=== PATIENT | female | born 1960 | race Caucasian/White ===

== ENCOUNTER 2016-10-19 08:25 | Day surgery (SDC) | payer OTHER ==
[2016-10-17 14:00] VITALS: BMI 19.0
--- NOTE | 2016-10-19 07:21 | HP ---
History & Physical Update - History History: No Change - Physical Physical: No Change - Assessment Assessment: No Change - Plan Plan: No Change (Cervical radiculopathy C5/6. Initial h&p is in pt's paper chart.)
[~2016-10-19 08:25] MED LIST: CEFAZOLIN 1 GM in DEXTROSE 5%-WATER - 100 ML IVPB ONE; GABAPENTIN 300 MG CAPSULE (FP) PO ONE; oxyCODONE HCL 10 MG SUSTAINED ACTING TABLET PO ONE
[2016-10-19] MEDS ORDERED: oxyCODONE HCL 10 MG SUSTAINED ACTING TABLET ONE (09:43)
[2016-10-19] MEDS ORDERED: GABAPENTIN 300 MG CAPSULE (FP) ONE (09:43)
[2016-10-19] MEDS ORDERED: ROCURONIUM BROMIDE 50 MG/5 ML VIAL ONE (10:00)
[2016-10-19] MEDS ORDERED: LIDOCAINE HCL/PF 2% SDV 5ML VIAL ONE (10:00)
[2016-10-19] MEDS ORDERED: PROPOFOL 20 ML ONE ×4 (10:00→10:59)
[2016-10-19] MEDS ORDERED: BUPIVACAINE HCL/PF 2.5 MG/ML - 30 ML VIAL IJ ONE (10:30)
[2016-10-19] MEDS ORDERED: LIDOCAINE 1%/EPI 1:100000 (20 ML MULTI DOSE VIAL) ONE (10:30)
[2016-10-19] MEDS ORDERED: MIDAZOLAM HCL 2 MG/2 ML SINGLE DOSE VIAL ONE (10:37)
[2016-10-19] MEDS ORDERED: ONDANSETRON 4 MG/2 ML VIAL IVPUSH PRN (11:27)
[2016-10-19] MEDS ORDERED: HYDROmorphone HCL CARPU-JECT 1 MG/1 ML DISP.SYRIN IVPUSH PRN (11:27)
[2016-10-19] MEDS ORDERED: oxyCODONE HCL 5 MG TABLET PO PRN ×3 (11:27→13:47)
[2016-10-19] MEDS ORDERED: LACTATED RINGERS SOLUTION 1,000 ML IV SCH ×2 (11:30→14:00)
[2016-10-19] MEDS ORDERED: ePHEDrine SULFATE 50 MG/1 ML AMPULE ONE (11:45)
[2016-10-19] MEDS ORDERED: GLYCOPYRROLATE 0.2 MG/1 ML VIAL ONE (13:19)
[2016-10-19] MEDS ORDERED: NEOSTIGMINE METHYLSULFATE 0.5 MG/ML - 10 ML MDV ONE (13:19)
--- NOTE | 2016-10-19 13:45 | OP ---
Operative Note - Note: Operative Date: 10/19/16 Pre-Operative Diagnosis: Cervical stenosis C5/6 Operation: ACDF C5/6 Post-Operative Diagnosis: Same as Pre-op Surgeon: Brayden Zhou Bottle Capping Machine Operator: Amador Nunes Anesthesiologist/RACEBOOK WRITER: Yaneth Sykes Anesthesia: General Estimated Blood Loss (mls): 5 Fluid Volume Replaced (mls): 1,500 Operative Report Dictated: Yes
[2016-10-19] MEDS ORDERED: ACETAMINOPHEN INJECTION 100 ML IVPB ONE (13:46)
[2016-10-19] MEDS ORDERED: diazePAM CARPU-JECT 10 MG/2 ML DISP.SYRIN ONE (13:46)
[2016-10-19] MEDS ORDERED: traMADol HCL 50 MG TABLET ONE (13:46)
[2016-10-19] MEDS ORDERED: KETOROLAC TROMETHAMINE 30 MG/1 ML VIAL IVPUSH PRN ×2 (13:47→15:30)
[2016-10-19] MEDS ORDERED: ONDANSETRON 4 MG/2 ML VIAL IVPB PRN (13:47)
[2016-10-19] MEDS ORDERED: morphine CARPU-JECT 4 MG/1 ML DISP.SYRIN IVPUSH PRN (13:47)
--- NOTE | 2016-10-19 13:47 | SURG ---
Surgery [facility] Note [facility]: Amador Nunes PA-C Date of Service: 10/19/16 Diagnosis: Cervical stenosis Procedure: Anterior cervical discectomy with fusion C5/6 I was present for the entirety of the operative procedure. For further detail, please refer to operative report. Visit type - Case Type Case Type: Scheduled Admission - New patient This patient is new to me today: Yes Date on this admission: 10/19/16
[2016-10-19] MEDS ORDERED: traMADol HCL 50 MG TABLET PO PRN (13:50)
[2016-10-19] MEDS: ACETAMINOPHEN 1000 MG/100 ML VIAL (NON FORMULARY) IVPB ONE ×2 (13:50→16:46)
[2016-10-19] MEDS ORDERED: DEXAMETHASONE SOD PHOSPHATE 4 MG/1 ML VIAL ONE (13:51)
[2016-10-19] MEDS: diazePAM CARPU-JECT 10 MG/2 ML DISP.SYRIN IVPUSH ONE ×2 (13:55→16:47)
[2016-10-19] MEDS ORDERED: FLUOXETINE HCL PO SCH (14:00)
--- NOTE | 2016-10-19 15:12 | OP ---
DATE OF OPERATION: 10/19/2016 PREOPERATIVE DIAGNOSIS: Cervical stenosis at C5-C6. POSTOPERATIVE DIAGNOSIS: Cervical stenosis at C5-C6. PROCEDURES PERFORMED: Anterior cervical discectomy and fusion, C5-C6. SURGEON: Brayden Zhou MD DRAWBRIDGE OPERATOR: RICKEY Monzon ESTIMATED BLOOD LOSS: Less than 50 mL. INTRAVENOUS FLUIDS: Per Anesthesia. ANESTHESIA: General. COMPLICATIONS: None. CONDITION: The patient was brought to the PACU in stable condition. INDICATIONS FOR SURGERY: The patient is a 56-year-old female who has been suffering from pain from her neck down her right arm. X-rays and MRI were completed, which showed that she had a herniated disk at C5-C6. She had gone through an exhaustive course of treatment for this, which included medications, physical therapy as well as injections. Unfortunately, her pain continued to persist in spite of all this. At this point, the risks, benefits and alternatives were discussed and the patient consented to surgery. DESCRIPTION OF PROCEDURE: The patient was brought to the operating room by the Anesthesia staff. After appropriate patient identification was performed, general anesthesia was administered. Appropriate anesthetic lines and SCDs were placed on the patient. The patient was placed supine on the OR bed with her arms tucked in at the sides. A shoulder roll was placed underneath her neck to extend her neck to the point that she could tolerate it, in the preoperative holding area. A needle was taped onto her neck to marcio out the C5-C6 level, and an x-ray was taken to confirm this. The needle was removed. Then 10 mL of lidocaine with epinephrine was injected into her neck at this time. Her neck was prepped and draped in a sterile manner. At this point, a time-out was completed. An incision was made in the left side of her neck. Dissection was carried down to the platysma. The platysma was cut in line with the skin incision. Next, the interval between sternocleidomastoid as well as strap muscles was developed. Next, the interval between cartilage sheath and tracheal esophagus was developed. Peanuts were used to elevate off the prevertebral fascia. A needle was placed into the C5-C6 disk and an x-ray was taken to confirm this was correct. At this point, the longus coli muscles were elevated off and retractor blades were placed in. A knife was used to incise the disk. A [place] pin was placed in the bodies of C5 and C6. The microscope was brought in. A Melendez was used to elevate the disk off the endplates. Using a series of pituitaries, Kerrisons and curets, the diskectomy was completed. The endplates were decorticated at this time. A size 7 cage filled with bone graft was placed in. The [place] pins were removed. A screw was placed into C5. A screw was placed into C6. AP and lateral x-rays confirmed the instrumentation to be in good position. Final tightening was performed. The platysma was closed with 2-0 Vicryl suture. The skin was closed with 3-0 Monocryl suture. Dermabond was applied. Steri-Strips were applied. A sterile dressing was applied. The patient was placed supine on the OR bed, extubated in the OR and brought to the PACU in stable condition. It should be noted that the patient was able to flex and extend her toes in the operating room. Diane [id number] MTDD
[2016-10-19] MEDS ORDERED: KETOROLAC TROMETHAMINE 30 MG/1 ML VIAL ONE (15:32)
[2016-10-19] MEDS: GABAPENTIN 300 MG CAPSULE (FP) PO SCH ×2 (18:23→21:29)
[2016-10-19] MEDS: CYCLOBENZAPRINE HCL 10 MG TABLET (FP) PO SCH ×2 (18:23→21:29)
[2016-10-19] MEDS: CEFAZOLIN 1 GM/D5W 50 ML IVPB SCH (19:57)
[2016-10-20] MEDS: CEFAZOLIN 1 GM/D5W 50 ML IVPB SCH (03:12)
[2016-10-20] MEDS: CYCLOBENZAPRINE HCL 10 MG TABLET (FP) PO SCH (06:12)
[2016-10-20] MEDS: GABAPENTIN 300 MG CAPSULE (FP) PO SCH (06:12)
[2016-10-20] MEDS ORDERED: LEVOTHYROXINE NA 50 MCG TABLET (FP) PO SCH (07:00)
--- NOTE | 2016-10-20 08:20 | DS ---
Physical Exam: SUBJECTIVE: Patient seen and examined. Sitting in bed about to eat breakfast. Tolerating PO liquids. C/o mild sore throat (due to ETT). Mild incisional tenderness. Pain control via PRN meds. Wearing her cervical collar as directed. Denies n/v/f/c, CP, SOB, numbness, tingling or upper extremity weakness. OBJECTIVE: Last Vital Signs Temp Pulse Resp BP Pulse Ox 98.0 F 50 L 18 96/58 100 10/20/16 06:00 10/20/16 06:00 10/20/16 07:48 10/20/16 06:00 10/20/16 07:48 CXR 10/20: hardware locked in good position. no fractures or dislocations. PE GENERAL: awake, alert, and fully oriented, in no acute distress. HEAD: Normal with no signs of trauma. EYES: PERRL, extraocular movements intact, sclera anicteric, conjunctiva clear. NECK: Trachea midline, supple. transverse incision from midline extending laterally c/d/i. LUNGS: cta b/l anteriorly HEART: rrr EXTREMITIES: 2+ pulses, warm, well-perfused, no edema. NEUROLOGICAL: cn II-XII grossly intact. Normal speech, gait not observed. PSYCH: Normal mood, normal affect. HOSPITAL COURSE: Date of Admission:10/19/16 Date of Discharge: 10/20/16 The patient was admitted to the Med-Surg Unit after an elective repair of their C5/6 stenosis. Now, s/p C5/6 ACDF. The day of surgery, the patient ambulated the hallways with assistance. Narcotic and non-narcotic pain management control was achieved with an oral and IV approach. POD #1 an xray was obtained and confirmed hardware placement at C5/ 6, no fractures or dislocations. Franci-operative IV ABX were administered. DVT prophylaxis was achieved with SCDs and early ambulation. The patient ambulated with Physical Therapy and no services were recommended upon discharge. Narcotic scripts and or muscle relaxants were checked with [place] [facility] prior to escribe. The discharge instructions and an oral pain management plan were reviewed with the patient. All questions answered. Above plan discussed with Dr. Zhou and agreed . Minutes to complete discharge: 20 <Amador Nunes P - Last Filed: 10/20/16 08:11> Physical Exam: SUBJECTIVE: Patient seen and examined OBJECTIVE: Vital Signs Temperature 98.3 F 10/20/16 09:05 Pulse Rate 52 L 10/20/16 09:05 Respiratory Rate 18 10/20/16 09:05 Blood Pressure 106/66 10/20/16 09:05 O2 Sat by Pulse Oximetry (%) 100 10/20/16 09:05 PHYSICAL EXAM GENERAL: The patient is awake, alert, and fully oriented, in no acute distress. HEAD: Normal with no signs of trauma. EYES: PERRL, extraocular movements intact, sclera anicteric, conjunctiva clear. ENT: Ears normal, nares patent, oropharynx clear without exudates, moist mucous membranes. NECK: Trachea midline, full range of motion, supple. LUNGS: Breath sounds equal, clear to auscultation bilaterally, no wheezes, no crackles, no accessory muscle use. HEART: Regular rate and rhythm, S1, S2 without murmur, rub or gallop. ABDOMEN: Soft, nontender, nondistended, normoactive bowel sounds, no guarding, no rebound, no hepatosplenomegaly, no masses. EXTREMITIES: 2+ pulses, warm, well-perfused, no edema. NEUROLOGICAL: Cranial nerves II through XII grossly intact. Normal speech, gait not observed. PSYCH: Normal mood, normal affect. SKIN: Warm, dry, normal turgor, no rashes or lesions noted. LABS HOSPITAL COURSE: Date of Admission:10/19/16 Date of Discharge: 10/20/16 The patient was admitted to the Med-Surg Unit after an elective repair of their herniated disc C5-6. The day of surgery, the patient ambulated the hallways with assistance. Narcotic and non-narcotic pain management control was achieved with an oral and IV approach. POD #1, the surgical drain was removed fully intact and without incident. An xray was obtained and confirmed hardware placement at ACDF C5-6, no fractures or dislocations. Franci-operative IV ABX were administered. DVT prophylaxis was achieved with SCDs and early ambulation. The patient ambulated with Physical Therapy and no services were recommended upon discharge. Narcotic scripts and or muscle relaxants were checked with [place] [facility] prior to escibe. The discharge instructions and an oral pain management plan were reviewed with the patient. All questions answered. Above plan discussed with Dr. Zhou and agreed. <Brayden Zhou - Last Filed: 10/20/16 17:50> Visit type - Case Type Case Type: Scheduled Admission - New patient This patient is new to me today: Yes Date on this admission: 10/20/16 <Amador Nunes - Last Filed: 10/20/16 08:11>
[2016-10-20 09:06] VITALS: BP 106/66; PULSE 52; TEMP 98.3
--- NOTE | 2016-10-20 09:47 | PN ---
Progress Note, Physician Chief Complaint: Patient seen at bedside, post anesthesia check. History of Present Illness: sp ACDF post op day one, general anesthesia with ETT - Current Medication List Current Medications: Active Medications Cyclobenzaprine HCl (Flexeril -) 5 mg PO TID [facility] Last Admin: 10/20/16 06:12 Dose: 5 mg Fentanyl (Sublimaze Injection -) 50 mcg IVPUSH [id number] PRN PRN Reason: PAIN Stop: 10/22/16 11:28 Last Admin: 10/19/16 15:45 Dose: 50 mcg Gabapentin (Neurontin -) 300 mg PO Q8H [facility] Last Admin: 10/20/16 06:12 Dose: 300 mg Hydromorphone HCl (Dilaudid Injection -) 0.5 mg IVPUSH [id number] PRN PRN Reason: PAIN Stop: 10/22/16 11:28 Lactated Ringer's (Lactated Ringers Solution) 1,000 mls @ 125 mls/hr IV ASDIR SYLVIA Lactated Ringer's (Lactated Ringers Solution) 1,000 mls @ 125 mls/hr IV ASDIR [facility] Ketorolac Tromethamine (Toradol Injection -) 30 mg IVPUSH Q6H PRN PRN Reason: PAIN Stop: 10/24/16 15:29 Last Admin: 10/19/16 15:30 Dose: 30 mg Levothyroxine Sodium (Synthroid -) 50 mcg PO DAILY@0700 [facility] Last Admin: 10/20/16 06:12 Dose: 50 mcg Loratadine (Claritin -) 10 mg PO DAILY [facility] Morphine Sulfate (Morphine Injection -) 4 mg IVPUSH Q4H PRN PRN Reason: PAIN Non-Formulary Medication (Fluoxetine Hcl [Prozac 90mg Weekly -]) 90 mg PO Q7D [facility] Ondansetron HCl (Zofran Injection) 4 mg IVPB Q6H PRN PRN Reason: NAUSEA AND/OR VOMITING Oxycodone HCl (Roxicodone -) 10 mg PO Q4H PRN PRN Reason: SEVERE PAIN Oxycodone HCl (Roxicodone -) 5 mg PO Q4H PRN PRN Reason: PAIN Oxycodone HCl (Roxicodone -) 10 mg PO Q4H PRN PRN Reason: PAIN Tramadol HCl (Ultram -) 50 mg PO Q6H PRN PRN Reason: PAIN Last Admin: 10/19/16 15:45 Dose: 50 mg - Objective Vital Signs: Vital Signs Temperature 98.3 F 10/20/16 09:05 Pulse Rate 52 L 10/20/16 09:05 Respiratory Rate 18 10/20/16 09:05 Blood Pressure 106/66 10/20/16 09:05 O2 Sat by Pulse Oximetry (%) 100 10/20/16 09:05 Constitutional: Yes: Well Nourished Cardiovascular: Yes: WNL Respiratory: Yes: WNL Gastrointestinal: Yes: WNL Extremities: Yes: WNL Neurological: Yes: WNL Assessment/Plan post anesthesia day one, no complications, pain controlled, slight sore throat, no nausea, dept of anesthesia will sign off care at this time
[2016-10-20] MEDS ORDERED: DESLORATADINE 5 MG PO SCH (10:00)
[2016-10-20] MEDS ORDERED: LORATADINE 10 MG TABLET PO SCH (10:00)
--- NOTE | 2016-10-24 16:30 | PATH ---
Surgical Pathology Report Patient Name: VIDAL POON [facility]. Rec. #: [id number] /Age/Gender: 1960 (Age: 56) / F Account: [id number] Location: [facility] Taken: 10/19/2016 Received: 10/19/2016 Reported: 10/24/2016 Physicians: Brayden Zhou M.D. Specimen(s) Received C5-C6 DISC Clinical History Cervical stenosis Final Diagnosis C5-C6, DISC, DISCECTOMY: CARTILAGE WITH DEGENERATIVE CHANGES. Electronically Signed Stephanie Bertrand M.D. Gross Description Received in formalin labeled "C5-C6 disc," is a 3.0 x 2.0 x 0.3 cm aggregate of mahmood fragments of fibrocartilaginous tissue. A liability claims representative portion is submitted in one cassette. 10/20/201610/20/2016
== END 2016-10-20 10:30 | disposition home or self-care (01) ==
LOC: FASU 08:25 → FM/S 17:11 → FASU 10-20 10:30
PROVIDERS: ATTEND Orthopaedic Surgery Orthopaedic Surgery of the Spine
PROC: 0RG10A0 Fusion of Cervical Vertebral Joint with Interbody Fusion Device, Anterior Approach, Anterior Column, Open Approach (ICD-10-PCS; 2016-10-19)
PROC: 0RB30ZZ Excision of Cervical Vertebral Disc, Open Approach (ICD-10-PCS; principal; 2016-10-19 12:19)
DX: M48.02 Spinal stenosis, cervical region (principal)
CPT/HCPCS: 22551; 22853; C1889; 72050-TC; 76000-TC; 88304-TC; 94760; 97116-GP; 97161-GP